=== PATIENT | female | born 1955 | race Caucasian/White ===

== ENCOUNTER 2020-06-27 17:41 | Outpatient (REF) | payer OTHER, SELFPAY | END 2020-06-27 17:42 | disposition home or self-care (01) | LOC: HO.LAB 17:41 | PROVIDERS: Visit Provider Internal Medicine | DX: Z20.828 Contact with and (suspected) exposure to other viral communicable diseases (principal) | CPT/HCPCS: C9803; U0003 ==

== ENCOUNTER 2021-04-10 20:40 | Emergency (ER) | payer OTHER, SELFPAY ==
--- NOTE | ~2021-04-10 | XR_ITS ---
EXAMINATION: XR SHOULDER, LEFT CLINICAL INFORMATION: Pain, fall. COMPARISON: Chest radiograph dated from 10/06/2019. TECHNIQUE: Four views of the left shoulder. FINDINGS: No evidence of acute fractures or malalignment. The humeral head is well-seated in the glenoid. There are mild degenerative changes in the glenohumeral joint and acromioclavicular joint with space narrowing, spurring and subcortical sclerosis. The visualized left-sided clavicle and left-sided ribs are within normal limits. No unexpected radiopaque foreign bodies. XR/XR shoulder LT min 2V IMPRESSION: No acute fractures or malalignment. 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
--- NOTE | ~2021-04-10 | XR_ITS ---
EXAMINATION: XR CLAVICLE, RIGHT CLINICAL INFORMATION: Fall, pain. COMPARISON: Chest radiograph dated from 10/06/2019. TECHNIQUE: Two views of the right clavicle. FINDINGS: Chronic deformity of the mid to distal clavicle without evidence of acute fractures or malalignment. The acromioclavicular joint is maintained with mild to moderate degenerative osteoarthritis. The humeral head is well-seated in the glenoid with also mild to moderate degenerative osteoarthritis. The visualized right-sided ribs are within normal limits. XR/XR clavicle RT IMPRESSION: No evidence of acute fractures or malalignment. Healing fracture of the mid to distal clavicle with callus formation. Mild to moderate degenerative osteoarthritis of the glenohumeral joint and acromio clavicular joint.
--- NOTE | ~2021-04-10 | XR_ITS ---
EXAMINATION: XR CERVICAL SPINE CLINICAL INFORMATION: Fall. COMPARISON: No similar priors. TECHNIQUE: 3 views of the cervical spine were obtained. FINDINGS: Anatomic alignment is maintained. There is moderate cervical spondylosis at C5-C6 and C6-C7 with disc space narrowing, subcortical sclerosis, anterior osteophytes and uncovertebral hypertrophy. The atlantooccipital and atlantoaxial articulations are maintained. On the odontoid view, the dens appears intact. The posterior elements are well aligned. No paravertebral soft tissue edema. No unexpected radiopaque foreign bodies. XR/XR cervical spine 3V IMPRESSION: No acute fractures or malalignment. Mild to moderate cervical spondylosis predominantly in the lower cervical spine as above.
[2021-04-10 21:19] VITALS: BP 175/89; PULSE 70; RESP 15; TEMP 36.7; O2SAT 98; BMI 30.4
--- NOTE | 2021-04-10 22:22 | ED.FALL ---
HPI - Fall General Chief Complaint: Fall Stated Complaint: fall Time Seen by Provider: 04/10/21 22:22 Source: patient Mode of arrival: ambulatory History of Present Illness HPI Narrative: 65-year-old female without past medical history who presents after a fall due to uneven cement sidewalk that occurred approximately at 4:00 p.m. this afternoon. Patient denies any head strike, loss of consciousness, or use of blood thinners. Patient states that she landed on to her right upper extremity and attempted to apply ice but states that she has continued to have pain through her right clavicle into the shoulder and proximal humerus. She denies any numbness, tingling, color changes into the distal portion of that extremity. Related Data Allergies Allergy/AdvReac Type Severity Reaction Status Date / Time azithromycin [AZITHROMYCIN] Allergy Intermediate RASH Unverified 03/15/20 19:35 levofloxacin [LEVOFLOXACIN] Allergy Intermediate RASH Unverified 03/15/20 19:35 Review of Systems Review of Systems: Pertinent positives and negatives as stated in HPI 10 point review of systems is otherwise negative. PMFSH Past Medical History Source: nursing notes reviewed Medical History Gallstone Insomnia Social History Social History Advance Directives: No Patient : No Physical Exam Vital Signs: Vital Signs: Last Vital Signs Temp 98.0 F 04/10/21 21:19 Pulse 70 04/10/21 21:19 Resp 15 04/10/21 21:19 BP 175/89 H 04/10/21 21:19 Pulse Ox 98 04/10/21 21:19 Body Mass Index 30.4 VITAL SIGNS: Reviewed. GENERAL: Well developed, well nourished, in no acute distress. HEAD: Normocephalic/atraumatic EYES: PERRLA, EOMI EARS: Ext canals without abnormality NOSE: Nares patent bilateral OROPHARYNX: no oral lesions noted, posterior pharynx clear NECK: Supple, no adenopathy LUNGS: Normal breath sounds. No adventitious sounds or accessory muscle use. SpO2<98>, no chest wall pain/crepitus/deformity CARDIOVASCULAR: Regular rate and rhythm without noted murmurs ABDOMEN: Soft, non-tender, non-distended with bowel sounds. RIGHT UPPER EXTREMITY: No deformities, pain on palpation over bicipital groove and in her proximal humerus area without noted pain when palpated over the clavicle, no pain and full range of motion noted at the elbow, wrist, fingers, capillary refill less than 3 seconds, palpable radial and ulnar pulses with warm hand and sensation is intact. SKIN: Inspection of the skin reveals no rashes NEUROLOGIC: Alert and oriented x 4. Strength and sensation to light touch were grossly intact x 4. Course Course Course Narrative: 65-year-old female with history and clinical presentation suggestive of possible right shoulder dislocation/right humeral fracture. Review of all investigations negative for acute fracture or dislocation and on reassessment after patient received combination analgesics she is feeling much improved. She will be discharged home in stable condition with weight restriction for lifting until evaluated by her primary care provider. Discharge Plan Discharge Clinical Impression: Fall, Right shoulder pain Patient Disposition: Home, Self-Care Instructions: Fall Prevention (ED), Shoulder Pain (ED) Additional Instructions: Tylenol 1000 mg, orally, every 6 hours as needed for pain control. Do not exceed 4000 mg within 24 hours. Ibuprofen 400 mg, orally with milk or food, every 6 hours as needed for pain control. Follow-up with your primary care provider in the next 2-3 days for re-evaluation further outpatient management. You should continue to use your shoulder to prevent stiffness. Avoid lifting greater than 25 lb (this is approximately 1 gal of milk). Return to the ER for acute worsening of symptoms. Referrals: Shayla Arechiga MD [Primary Care Provider] - 2 days (Fall with right shoulder pain) Stand Alone Forms: Work/School Release
[2021-04-10] MEDS: Ketorolac Tromethamine 15 MG/ML VIAL IM (22:43)
[2021-04-10] MEDS: Acetaminophen 325 MG TABLET 975 MG PO (22:43)
== END 2021-04-11 00:18 | disposition home or self-care (01) ==
PROVIDERS: Emergency Provider Student in an Organized Health Care Education/Training Program; PCP Internal Medicine
DX: M25.511 Pain in right shoulder (principal); Z91.81 History of falling
CPT/HCPCS: 72040; 73000; 73030; 96372; 99283; 99284; J1885